=== PATIENT | male | born 1955 | race Caucasian/White ===

== ENCOUNTER → 2020-11-07 | Outpatient (CLI) | payer OTHER ==
--- NOTE | 2020-11-07 16:52 | RAD ---
XR CHEST 2V History: Reason: SHORTNESS OF BREATH. / Spl. Instructions: / History: Comparison: None. Findings: No consolidation or pleural effusion. Normal heart size. No pneumothorax. Impression: 1. No acute cardiopulmonary process. Electronically signed by: Fadi Grady DO (11/07/2020 4:49 PM) [id number]
== END ==
LOC: RAD 12:42
PROVIDERS: ATTEND Internal Medicine Pulmonary Disease
DX: R06.02 Shortness of breath (principal)
CPT/HCPCS: 71046

== ENCOUNTER → 2020-12-27 | Outpatient (CLI) | payer OTHER, MEDICAID ==
[~2020-12-27] MED LIST: ZOLPIDEM 5 MG TABLET. PO ONE
--- NOTE | 2020-12-28 12:03 | SLEEP ---
DATE OF STUDY: 12/27/2020 SLEEP STUDY REFERRING PHYSICIAN: Dr. Beau Yoo The patient is a 65-year-old who weighs 250 pounds with a BMI of 39. The patient underwent split night study performed at [facility]. During the night study, the patient spent 429 minutes in bed and slept for 300 minutes with a sleep efficiency of 70%. Sleep latency was 114 minutes with a REM latency of 144 minutes. Sleep architecture showed normal stage 1 and stage 2 sleep, increased N3 sleep and normal REM sleep. During the initial diagnostic portion of the study, the patient slept for 80 minutes. During that time, there were no obstructive mixed or central apneas, but 42 hypopneas. The patient's AHI was 32 per hour with a supine AHI of 0 per hour due to lack of supine sleep. REM sleep was not seen during the diagnostic portion either. EKG monitoring revealed normal sinus rhythm, average heart rate 69 beats per minute, no arrhythmias observed. Nocturnal oximetry study revealed a mean oxygen saturation of 92% with lowest of 76%. 21% of time oxygen saturation remained between 80% and 89%. PLMS were seen at index of 46 per hour and 2 per hour caused EEG arousals. The patient met the criteria for CPAP initiation. It was started at 5 cm water and titrated up to 16 cm water. At the final pressure, the patient slept for 52 minutes. The patient had lateral REM sleep. The patient's AHI was reduced to 2 per hour and oxygen saturation remained above 90%. The patient used medium size full face mask. IMPRESSION: 1. Severe obstructive sleep apnea at an AHI of 32 per hour. 2. Nocturnal hypoxia secondary to obstructive sleep apnea, but resolved with CPAP. 3. Moderate periodic limb movements. RECOMMENDATIONS: 1. CPAP at 16 cm water completely eliminated the patient's sleep apnea and should be used on a nightly basis. 2. Follow up in 4-6 weeks to assess compliance with CPAP and to document clinical improvement. 3. Weight loss is strongly advised. 4. Avoid [employer] depressants. 5. Cautioned regarding driving until symptoms of sleep apnea resolve with the use of CPAP. 6. The patient use full face mask, medium size. 7. The patient should also be further evaluated for symptoms of restless legs during the day. ELO U. CHOU, MD DR: ZULY/panchito JOB#: [id number] / [id number] Hyun Guaman GEORGE MD
== END ==
LOC: SLPLAB 19:06
PROVIDERS: ATTEND Internal Medicine Pulmonary Disease
DX: G47.33 Obstructive sleep apnea (adult) (pediatric) (principal); G47.34 Idiopathic sleep related nonobstructive alveolar hypoventilation; G47.61 Periodic limb movement disorder
CPT/HCPCS: 95810